=== PATIENT | male | born 1960 | race Caucasian/White ===

== ENCOUNTER 2020-10-17 16:44 | Inpatient (IN) | payer OTHER ==
[2020-10-17] MEDS ORDERED: SODIUM CHLORIDE 500 ML IV STA (20:03)
[2020-10-17] MEDS ORDERED: ASPIRIN 81 MG CHEWABLE TABLETS PO ONE ×2 (20:35→21:21)
[2020-10-17] MEDS ORDERED: METOPROLOL TARTRATE 25 MG TABLET (FP) PO ONE (20:36)
[2020-10-17 20:38] LABS: BASO % 0.4 % (0-2.0); EOS % 0.2 % (0-4.5); HEMATOCRIT 46.5 % (35.4-49); HEMOGLOBIN 16.4 GM/dL (11.7-16.9); LYMPH % 23.4 % (8-40); MCH 31.7 pg (25.7-33.7); MCHC 35.2 g/dl (32.0-35.9); MEAN PLT VOLUME 10.1 fl (7.5-11.1); PLATELET COUNT 268 K/MM3 (134-434); RBC 5.16 M/mm3 (4.00-5.60); WHITE BLOOD COUNT 14.4 K/mm3 (4.0-10.0)
[2020-10-17 20:58] LABS: POTASSIUM 3.6 mmol/L (3.5-5.1)
[2020-10-17 21:00] LABS: CALCIUM 9.3 mg/dL (8.5-10.1)
[2020-10-17 21:01] LABS: ALBUMIN 3.9 g/dl (3.4-5.0); BLOOD UREA NITROGEN 16.2 mg/dL (7-18)
[2020-10-17 21:05] LABS: BILIRUBIN,TOTAL 0.5 mg/dL (0.2-1)
[2020-10-17 21:06] LABS: TOT PROT 7.9 g/dl (6.4-8.2)
[2020-10-17] MEDS ORDERED: METOPROLOL TARTRATE 25 MG TABLET (FP) ONE (21:11)
[2020-10-17] MEDS ORDERED: ASPIRIN 81 MG CHEWABLE TABLETS ONE ×2 (21:12→22:34)
[2020-10-17] MEDS ORDERED: HEPARIN NA (PORCINE) 5,000 UNITS/ML 1ML VIAL IVPUSH PRN ×2 (21:22)
[2020-10-17] MEDS ORDERED: HEPARIN NA (PORCINE) 5,000 UNITS/ML 1ML VIAL IVPUSH ONE (21:22)
[2020-10-17] MEDS ORDERED: HEPARIN - 25,000 UNIT in SODIUM CHLORIDE 495 ML IV SCH (21:30)
[2020-10-17] MEDS ORDERED: ATORVASTATIN CA 80 MG TABLET (FP) PO ONE (21:43)
[2020-10-17] MEDS ORDERED: CLOPIDOGREL BISULFATE 300 MG TABLET PO ONE (21:43)
[2020-10-17 22:33] LABS: MAGNESIUM 1.8 mg/dL (1.8-2.4)
[2020-10-17 23:16] LABS: INR 1.03 (0.83-1.09); PROTHROMBIN TIME (PATIENT) 12.5 SEC (9.7-13.0)
[2020-10-17 23:19] LABS: ACTIVATED PTT 27.7 SECONDS (25.2-36.5)
[2020-10-17] MEDS ORDERED: LISINOPRIL 5 MG TABLET ONE (23:29)
[2020-10-17] MEDS ORDERED: ISOSORBIDE MONONITRATE 60 MG TAB.SR.24H (FP) PO ONE (23:29)
[2020-10-17] MEDS ORDERED: CLOPIDOGREL BISULFATE 300 MG TABLET ONE (23:29)
[2020-10-17] MEDS ORDERED: ATORVASTATIN CA 80 MG TABLET (FP) ONE (23:30)
[2020-10-17] MEDS ORDERED: HEPARIN NA (PORCINE) 5,000 UNITS/ML 1ML VIAL ONE (23:31)
[2020-10-17] MEDS ORDERED: HEPARIN INFUSION - 25,000 UNITS/500 ML INFUS.BAG IVPB ONE (23:31)
[2020-10-17] MEDS: ISOSORBIDE MONONITRATE 30 MG TAB.SR.24H (FP) PO SCH (23:49)
[2020-10-17] MEDS: LISINOPRIL 5 MG TABLET PO SCH (23:49)
[2020-10-18 05:16] LABS: EPI CELLS 5 /uL (0-25.1); HYALINE CASTS 1 /uL (0-3.1); URINE APPEARANCE CLEAR; URINE BACTERIA 5 /uL (0-1359); URINE BILIRUBIN NEGATIVE (NEGATIVE); URINE COLOR YELLOW; URINE GLUCOSE (UA) 3+ (NEGATIVE); URINE KETONE TRACE (NEGATIVE); URINE LEUK ESTERASE NEGATIVE (NEGATIVE); URINE NITRITE NEGATIVE (NEGATIVE); URINE PROTEIN 1+ (NEGATIVE); URINE RBC 3 /uL (0-23.9); URINE WBC 2 /uL (0-25.8)
[2020-10-18] MEDS ORDERED: METOPROLOL TARTRATE 25 MG TABLET (FP) ONE (06:16)
[2020-10-18] MEDS: METOPROLOL TARTRATE 50 MG TABLET (FP) PO SCH ×2 (06:21→14:49)
[2020-10-18 08:31] LABS: CALCIUM 9.3 mg/dL (8.5-10.1)
[2020-10-18 08:32] LABS: ALBUMIN 3.6 g/dl (3.4-5.0); BASO % 0.6 % (0-2.0); BLOOD UREA NITROGEN 17.5 mg/dL (7-18); EOS % 0.1 % (0-4.5); HEMATOCRIT 43.1 % (35.4-49); LYMPH % 27.9 % (8-40); MAGNESIUM 1.9 mg/dL (1.8-2.4); MCH 31.5 pg (25.7-33.7); MCHC 34.7 g/dl (32.0-35.9); MEAN CELL VOLUME 90.6 fl (80-96); MEAN PLT VOLUME 10.6 fl (7.5-11.1); MONO % 12.8 % (3.8-10.2); NEUT % 58.6 % (42.8-82.8); PLATELET COUNT 254 K/MM3 (134-434); RBC 4.75 M/mm3 (4.00-5.60); RDW 13.1 % (11.9-15.9); WHITE BLOOD COUNT 12.6 K/mm3 (4.0-10.0)
[2020-10-18 08:35] LABS: CREATININE 0.9 mg/dL (0.55-1.3)
[2020-10-18 08:36] LABS: BILIRUBIN,TOTAL 1.1 mg/dL (0.2-1); TOT PROT 7.2 g/dl (6.4-8.2)
[2020-10-18] MEDS ORDERED: ASPIRIN 81 MG CHEWABLE TABLETS ONE (12:05)
[2020-10-18] MEDS ORDERED: LISINOPRIL 5 MG TABLET ONE (12:05)
[2020-10-18] MEDS ORDERED: ISOSORBIDE MONONITRATE 60 MG TAB.SR.24H (FP) PO ONE (12:05)
[2020-10-18] MEDS ORDERED: INSULIN SLIDING SCALE (NOVOLOG) 1 VIAL SQ ONE (12:14)
[2020-10-18] MEDS: INSULIN SLIDING SCALE (NOVOLOG) 1 VIAL SQ SCH ×2 (12:21→17:31)
[2020-10-18] MEDS: LISINOPRIL 5 MG TABLET PO SCH (12:21)
[2020-10-18] MEDS: ASPIRIN 81 MG CHEWABLE TABLETS PO SCH (12:21)
[2020-10-18] MEDS: ISOSORBIDE MONONITRATE 30 MG TAB.SR.24H (FP) PO SCH (12:21)
[2020-10-18] MEDS: CLOPIDOGREL BISULFATE 75 MG TABLET (FP) PO SCH (14:50)
[2020-10-18 18:00] VITALS: BMI 23.8
[2020-10-18] MEDS: ATORVASTATIN CA 80 MG TABLET (FP) PO SCH (21:23)
[2020-10-18] MEDS: METOPROLOL TARTRATE 25 MG TABLET (FP) PO SCH (21:23)
[2020-10-18] MEDS ORDERED: ENOXAPARIN NA (PORCINE) 100 MG/1 ML DISP.SYRIN SQ SCH (22:00)
[2020-10-19] MEDS: INSULIN SLIDING SCALE (NOVOLOG) 1 VIAL SQ SCH ×3 (07:28→17:40)
[2020-10-19] MEDS ORDERED: HEPARIN NA (PORCINE) 5,000 UNITS/ML 1ML VIAL IVPUSH PRN ×2 (09:19)
[2020-10-19 09:29] LABS: BASO % 0.6 % (0-2.0); EOS % 0.7 % (0-4.5); HEMATOCRIT 41.2 % (35.4-49); HEMOGLOBIN 14.3 GM/dL (11.7-16.9); LYMPH % 36.1 % (8-40); MCH 31.8 pg (25.7-33.7); MCHC 34.8 g/dl (32.0-35.9); MEAN CELL VOLUME 91.3 fl (80-96); MEAN PLT VOLUME 10.6 fl (7.5-11.1); MONO % 16.4 % (3.8-10.2); NEUT % 46.2 % (42.8-82.8); PLATELET COUNT 231 K/MM3 (134-434); RBC 4.51 M/mm3 (4.00-5.60); RDW 13.1 % (11.9-15.9); WHITE BLOOD COUNT 11.6 K/mm3 (4.0-10.0)
[2020-10-19 09:51] LABS: POTASSIUM 3.5 mmol/L (3.5-5.1)
[2020-10-19] MEDS: HEPARIN - 25,000 UNIT in SODIUM CHLORIDE 495 ML IV SCH ×2 (10:00→10:06)
[2020-10-19] MEDS: LISINOPRIL 5 MG TABLET PO SCH (10:05)
[2020-10-19] MEDS: CLOPIDOGREL BISULFATE 75 MG TABLET (FP) PO SCH (10:05)
[2020-10-19] MEDS: ASPIRIN 81 MG CHEWABLE TABLETS PO SCH (10:05)
[2020-10-19] MEDS: METOPROLOL TARTRATE 25 MG TABLET (FP) PO SCH ×2 (10:06→21:24)
[2020-10-19] MEDS ORDERED: PT OWN MED DRAWER 7, Y5N ONE ×2 (10:08→11:39)
[2020-10-19 10:20] LABS: ALBUMIN 3.3 g/dl (3.4-5.0)
[2020-10-19 10:23] LABS: BLOOD UREA NITROGEN 29.2 mg/dL (7-18); CREATININE 1.1 mg/dL (0.55-1.3)
[2020-10-19 10:25] LABS: TOT PROT 6.9 g/dl (6.4-8.2)
[2020-10-19] MEDS ORDERED: SODIUM CHLORIDE 1,000 ML IV SCH (12:15)
[2020-10-19 18:31] VITALS: BP 110/78; PULSE 86; TEMP 97.7
[2020-10-19] MEDS: ATORVASTATIN CA 80 MG TABLET (FP) PO SCH (21:24)
== END 2020-10-19 22:00 | disposition short-term general hospital (02) | DRG 190 ==
LOC: JER 16:44 → JERBED 23:17 → J4W 10-18 16:22
PROVIDERS: ADMIT Internal Medicine; ATTEND Internal Medicine
DX: I21.4 Non-ST elevation (NSTEMI) myocardial infarction (principal); I10 Essential (primary) hypertension; R00.0 Tachycardia, unspecified; J84.10 Pulmonary fibrosis, unspecified; E78.5 Hyperlipidemia, unspecified; K76.0 Fatty (change of) liver, not elsewhere classified; E11.9 Type 2 diabetes mellitus without complications; I70.0 Atherosclerosis of aorta; M89.9 Disorder of bone, unspecified
CPT/HCPCS: 36415; 71046-TC-FY; 71275-TC; 74175-TC; 76705-TC; 80053; 80061; 80074; 81003; 82550; 82553; 82962; 83036; 83721; 83735; 83880; 84100; 84153; 84443; 84484; 85025; 85610; 85730; 87804; 93005; 93010; 93306-TC; 99285-25; C9803; J1644; Q9967; U0003